=== PATIENT | female | born 1990 | race Caucasian/White ===

== ENCOUNTER 2018-07-05 22:43 | Observation (INO) | END 2018-07-06 05:17 | disposition home or self-care (01) | LOC: 4S1 22:43 → OPB 22:43 → 4S1 22:47 ==

== ENCOUNTER 2018-07-17 05:26 | Inpatient (IN) | END 2018-07-19 15:20 | disposition home or self-care (01) | LOC: OPB 05:26 → 4S1 05:27 → 4S2 14:36 ==

== ENCOUNTER 2021-01-02 20:25 | Inpatient (IN) ==
[2021-01-02] MEDS ORDERED: OXYTOCIN 30 UNITS/500 ML BAG IV PRN ×2 (20:41→23:27)
[2021-01-02] MEDS: LACTATED RINGER'S 1,000 ML IV PRN ×2 (20:50→21:50)
--- NOTE | 2021-01-02 20:53 | History & Physical Report ---
Date of Service January 02, 2021 Assessment & Plan Admission and Anticipated Discharge Date Admission Date: IUP at 39 weeks in active labor requesting epidural analgesia anticipate vaginal delivery History of Present Illness Primary Care Provider: Lanie Hernandez MD Patient is a 30 yo white female EDC 01/06/21 who presents at 39+ weeks in active labor. complicated by hypothyroidism. Blood type O positive GBS -negative Allergies Allergy/AdvReac Type Severity Reaction Status Date / Time gluten Allergy Severe Diarrhea/ Verified 01/02/21 16:06 Thyroid Swelling Home Medications Medication Instructions Recorded Confirmed Type levothyroxine 88 mcg PO QAM@0300 05/19/20 01/02/21 History cholecalciferol (vitamin D3) PO 07/20/20 01/02/21 History ferrous sulfate PO 07/20/20 01/02/21 History prenat.vits,sheila,[id number] PO 11/23/20 01/02/21 History Patient History Medical History Asthma Has not used inhaler since 2016 GERD (gastroesophageal reflux disease) During first trimester Ford's thyroiditis History of chicken pox Post traumatic stress disorder Subchorionic hematoma in first trimester Surgical History H/O wisdom tooth extraction History of colposcopy [place] teeth removed Family History Grandmother (Paternal) Breast cancer Denies family history of Ovarian cancer Colorectal cancer Social History Smoking Status: Never smoker Hx Alcohol Use: No Hx Substance Use: No Preferred Language: Grenadian Communication Ability: Effective Printing Table Hand Required: No Beliefs That Will Affect Care: None marital status: Single marital status details: chiqui Omer (30) [phone] Current Living Situation: Family and Significant Other Current Living Situation Comment: Lives with Chiqui, 2 children, ferrets current occupational status: employed current occupation: works as Feels Safe at Home: Yes Assistive Devices: None Review of Systems All systems reviewed & are unremarkable except as noted in HPI & below Physical Exam Constitutional: WD/WN, vitals as above Respiratory: normal respiratory effort, lungs clear to auscultation Cardiovascular: RRR, no murmur, no edema Gastrointestinal (Abdomen): normal bowel sounds, soft, nontender, no hepatosplenomegaly Psychiatric: A+Ox3, euthymic affect Genitourinary: OB Exam Abdomen: + regular contractions (every 2minutes) Manual OB Exam: + cervical dilation 7 cm, + cervical effacement 100% and + station high OB Exam Monitor Tracing: + external FHT monitor used, + external uterine monitor used, + category II and + normal FHT variability vertex by sono Results & Data ([facility]) Vital Signs (Past 12 Hours) Vital Signs Temp Pulse Resp BP 01/02/21 20:31 112 H 132/85 01/02/21 20:26 98.1 F 18 Coding Level of Care Code None
[2021-01-02 21:04] LABS: Hematocrit (blood only) 35.2 % (37-47); Hemoglobin 11.4 g/dL (12.0-16.0); Mean Corpuscular Hemoglobin 25.6 pg (25-34); Mean Corpuscular Hgb Conc 32.4 g/dL (32-36); Mean Corpuscular Volume 79.1 fL (80-100); Mean Platelet Volume 9.3 fL (7.4-10.4); Platelet Count 225 K/uL (130-400); RDW Coefficient of Variation 15.2 % (11.5-14.5); RDW Standard Deviation 44.4 fL (36.4-46.3); Red Blood Count 4.45 M/uL (4.2-5.4); White Blood Count 18.15 K/uL (4.8-10.8)
[2021-01-02] MEDS ORDERED: ePHEDrine sulfate 50 MG/ML AMP IV PRN (21:04)
[2021-01-02] MEDS ORDERED: NALOXONE HCL 1 MG in SODIUM CHLORIDE 0.9% 1000ML 1,000 ML IV PRN (21:04)
[2021-01-02] MEDS ORDERED: NALBUPHINE HCL INJ 10 MG/ML AMP IV PRN (21:04)
[2021-01-02] MEDS ORDERED: ONDANSETRON INJ 2 MG/ML 2 ML VIAL IV PRN ×2 (21:04→22:45)
[2021-01-02] MEDS ORDERED: NALOXONE HCL 0.4 MG/1 ML VIAL/CARP IV PRN (21:04)
[2021-01-02] MEDS ORDERED: diphenhydrAMINE 50 MG/ML VIAL IV PRN (21:04)
[2021-01-02] MEDS ORDERED: fentaNYL 2MCG/ML ROPIVACAINE 1.25MG/ML 100 ML BAG EPI PRN (21:04)
--- NOTE | 2021-01-02 21:04 | Anesthesiology Consultation ---
Date of Service January 02, 2021 Assessment & Plan ASA ASA2 Proposed Anesthesia Anesthesia Type: Labor Epidural Risk / Benefits Reviewed With: PT / POA / Parent / Guardian, Accepts Plan and Informed Consent Obtained History Allergies Allergy/AdvReac Type Severity Reaction Status Date / Time gluten Allergy Severe Diarrhea/ Verified 01/02/21 16:06 Thyroid Swelling Medications Home Medications Medication Instructions Recorded Confirmed Last Taken ferrous sulfate [Iron (ferrous 325 mg PO DAILY 01/02/21 01/02/21 01/02/21 07:00 sulfate)] levothyroxine 112 mcg PO DAILY 01/02/21 01/02/21 01/02/21 06:00 vit no.[id number] 1 tab PO DAILY 01/02/21 01/02/21 01/02/21 07:00 [ Vitamin] Active Medications Generic Name Dose Route Start Last Admin Trade Name Freq PRN Reason Stop Dose Admin Ephedrine Sulfate 10 mg 01/02/21 21:04 01/02/21 22:40 Ephedrine Sulfate 50 Mg/Ml Amp IV 01/03/21 21:03 10 mg Q5M PRN Administration Hypotension Lactated Ringer's 1,000 mls @ 125 mls/hr 01/02/21 20:41 01/02/21 21:50 Lr IV 01/04/21 20:40 125 mls/hr .Q8H PRN Administration L&D Protocol Protocol Ropivacaine 100 ml 01/02/21 21:04 01/02/21 21:47 Fentanyl 2mcg/Ml Ropivacaine 1.25mg/Ml 100 Ml Bag EPI 01/03/21 21:03 100 ml PRN PRN Administration Pain R/T Labor Protocol Past Medical History Medical History Asthma Has not used inhaler since 2017 GERD (gastroesophageal reflux disease) During first trimester Ford's thyroiditis History of chicken pox Post traumatic stress disorder Subchorionic hematoma in first trimester Exercise / Class Metabolic Activity II 4-5 Yardwork/Stairs/Walk up hill Past Family History Family History Grandmother (Paternal) Breast cancer Denies family history of Ovarian cancer Colorectal cancer Past Surgical History Surgical History H/O wisdom tooth extraction History of colposcopy [place] teeth removed Past Anesthesia History No Hx of Anesthesia Complications and No Family Hx of Anesthesia Complications History of PONV No Hx of PONV and No Hx of Motion Sickness Social History Smoking Status: Never smoker Hx Alcohol Use: No Hx Substance Use: No substance use type: does not use Review of Systems denies fever/cough/ colds/ chest pain/ SOB/ KORTNEY denies KORTNEY Physical Exam Vital Signs Last Vital Signs Temp 36.3 C L 01/02/21 22:35 Pulse 113 H 01/02/21 22:49 Resp 18 01/02/21 22:30 BP 120/80 01/02/21 22:39 Pulse Ox 100 01/02/21 22:49 ENMT Mouth: no TMJ abnormality and no dentition abnormality Thyromental Distance: > or= 3.5 Finger Breadths Mallampati Class: II Neck neck extension not limited Respiratory normal respiratory effort; no respiratory distress Auscultation: lungs clear to auscultation bilaterally Cardiovascular Rate/Rhythm: regular rate and regular rhythm Neurologic moves all extremities Psychiatric Orientation: alert and oriented x 3 Testing Laboratory Results 01/02/21 20:54
[2021-01-02] MEDS ORDERED: SODIUM CHLORIDE 0.9% INJ 10 ML VIAL ONE (21:19)
[2021-01-02] MEDS ORDERED: BUPIVACAINE 0.25% 30 ML VIAL ONE (21:19)
[2021-01-02] MEDS ORDERED: ePHEDrine sulfate 50 MG/ML AMP ONE (21:19)
[2021-01-02] MEDS ORDERED: fentaNYL citrate 100 MCG/2 ML VIAL ONE (21:19)
[2021-01-02] MEDS ORDERED: fentaNYL 2MCG/ML ROPIVACAINE 1.25MG/ML 100 ML BAG EPI ONE (21:20)
[2021-01-02] MEDS ORDERED: HYDROCORTISONE ACETATE 25 MG SUPP PR PRN (23:27)
[2021-01-02] MEDS ORDERED: DIPHTHERIA/TETANUS/PERTUSSIS 0.5 ML SYR/VIAL IM ONE (23:27)
[2021-01-02] MEDS ORDERED: BENZOCAINE 20% AER SPR 82.5 GM CAN EXT PRN (23:27)
[2021-01-02] MEDS ORDERED: oxyCODONE/ACETAMINOPHEN 5mg/325mg TAB PO PRN (23:27)
[2021-01-02] MEDS ORDERED: SUPERCREAM 0.870% 15 GM JAR EXT PRN (23:27)
--- NOTE | 2021-01-02 23:32 | Delivery Summary ---
Vaginal Delivery Summary Date of Service January 02, 2021 Patient is a 30-year-old 4 para 2-0-1-2 white female who presents at 39- 3/7 weeks in active labor. She received effective epidural analgesia. Her membranes were ruptured for clear fluid. She then progressed to full dilation and began pushing phase. She pushed well through 2 contractions for delivery of a viable female . After the head was delivered the rest of the delivered easily and was placed on the mother's abdomen for further attention and drying. The infant was vigorous and moving all 4 limbs. The placenta was expressed intact with a three-vessel cord. bleeding was controlled with dilute Pitocin. Perineum was inspected and noted to be intact. Estimated blood loss was 200 cc. Mother and infant were doing well after delivery. Vaginal Delivery Summary [facility] Vaginal Delivery Charge Delivery Type Details: [facility]
[2021-01-03] MEDS: IBUPROFEN 600 MG TAB PO PRN ×4 (01:11→22:26)
--- NOTE | 2021-01-03 03:49 | Anesthesiology Progress Note ---
Date of Service January 03, 2021 Anesthesia Post Procedure Vital Signs Vital Signs: Temp Pulse Pulse Resp BP BP Pulse Ox 01/03/21 02:40 36.7 C 82 18 117/76 97 01/03/21 01:40 83 106/63 01/03/21 01:30 18 01/03/21 01:00 18 01/03/21 00:55 98 H 111/65 01/03/21 00:40 100 H 111/54 L 01/03/21 00:30 18 01/03/21 00:25 85 115/57 L 01/03/21 00:15 18 01/03/21 00:00 18 01/02/21 23:55 88 117/59 L 01/02/21 23:40 100 H 99/51 L 01/02/21 23:30 18 01/02/21 23:25 98 H 102/56 L 01/02/21 23:14 112 H 100 01/02/21 23:10 99 H 119/70 01/02/21 23:09 108 H 100 01/02/21 23:07 18 01/02/21 23:04 131 H 97 01/02/21 23:00 125 H 18 92 01/02/21 22:59 117 H 100 01/02/21 22:56 121 H 119/70 01/02/21 22:54 116 H 100 01/02/21 22:49 113 H 100 01/02/21 22:44 115 H 100 01/02/21 22:39 101 H 120/80 100 01/02/21 22:36 116 H 94/52 L 01/02/21 22:35 36.3 C L 01/02/21 22:34 102 H 100 01/02/21 22:30 18 01/02/21 22:29 83 100 01/02/21 22:26 75 106/60 01/02/21 22:24 107 H 100 01/02/21 22:19 93 H 100 01/02/21 22:14 104 H 100 01/02/21 22:10 100 H 115/74 01/02/21 22:09 100 H 100 01/02/21 22:07 91 H 109/71 01/02/21 22:04 86 110/69 100 01/02/21 22:01 96 H 110/68 01/02/21 21:59 94 H 100 01/02/21 21:58 94 H 126/74 01/02/21 21:55 93 H 117/70 01/02/21 21:54 97 H 100 01/02/21 21:52 98 H 114/70 01/02/21 21:50 18 01/02/21 21:49 82 119/56 L 100 01/02/21 21:48 18 01/02/21 21:46 91 H 18 152/75 H 01/02/21 21:44 96 H 18 100 01/02/21 21:43 98 H 132/92 01/02/21 21:38 18 01/02/21 20:31 112 H 132/85 01/02/21 20:26 36.7 C 18 Pain Intensity Abdomen: Pain Intensity: 1 Transfer of Care Handoff Completed per policy Notes Mental Status: alert / awake / arousable and participated in evaluation Patient Amnestic to Procedure: Yes Nausea / Vomiting: adequately controlled Pain: adequately controlled Airway Patency, RR, SpO2: stable & adequate BP & HR: stable & adequate Hydration State: stable & adequate Anesthetic Complications: no major complications apparent and Pt Satisfied with anesthetic care
[2021-01-03] MEDS: LEVOTHYROXINE SODIUM 112 MCG TABLET PO SCH (05:43)
[2021-01-03 06:52] LABS: Hematocrit (blood only) 32.7 % (37-47); Hemoglobin 10.5 g/dL (12.0-16.0); Mean Corpuscular Hemoglobin 25.3 pg (25-34); Mean Corpuscular Hgb Conc 32.1 g/dL (32-36); Mean Corpuscular Volume 78.8 fL (80-100); Mean Platelet Volume 9.5 fL (7.4-10.4); Platelet Count 219 K/uL (130-400); RDW Coefficient of Variation 15.3 % (11.5-14.5); RDW Standard Deviation 44.8 fL (36.4-46.3); Red Blood Count 4.15 M/uL (4.2-5.4); White Blood Count 19.61 K/uL (4.8-10.8)
[2021-01-03] MEDS: DOCUSATE SODIUM 100 MG CAP PO SCH ×2 (08:24→20:39)
[2021-01-03] MEDS: PRENATAL VITAMIN 1 TAB PO SCH (08:24)
--- NOTE | 2021-01-03 08:40 | Obstetrical Progress Note ---
Date of Service January 03, 2021 Assessment & Plan (1) Encounter for care and examination after delivery: satisfactory post progress continue current care plan Subjective Ambulation: ambulating normally Voiding: no voiding problems Passing Gas:: Yes Diet Tolerance:: regular diet Lochia:: Small Feeding Type:: breast feeding Physical Exam Constitutional WD/WN, vitals as above Psychiatric A+Ox3, euthymic affect Genitourinary OB Exam Abdomen: + fundal height Fundus: + firm and + relation to umbilicus (at U) no calf tenderness Results & Data ([facility]) Vital Signs (Past 12 Hours) Vital Signs Temp Pulse Pulse Resp BP BP Pulse Ox 01/03/21 07:50 98.6 F 67 18 111/75 98 01/03/21 02:40 98.1 F 82 18 117/76 97 01/03/21 01:40 83 106/63 01/03/21 01:30 18 01/03/21 01:00 18 01/03/21 00:55 98 H 111/65 01/03/21 00:40 100 H 111/54 L 01/03/21 00:30 18 01/03/21 00:25 85 115/57 L 01/03/21 00:15 18 01/03/21 00:00 18 01/02/21 23:55 88 117/59 L 01/02/21 23:40 100 H 99/51 L 01/02/21 23:30 18 01/02/21 23:25 98 H 102/56 L 01/02/21 23:14 112 H 100 01/02/21 23:10 99 H 119/70 01/02/21 23:09 108 H 100 01/02/21 23:07 18 01/02/21 23:04 131 H 97 01/02/21 23:00 125 H 18 92 01/02/21 22:59 117 H 100 01/02/21 22:56 121 H 119/70 01/02/21 22:54 116 H 100 01/02/21 22:49 113 H 100 01/02/21 22:44 115 H 100 01/02/21 22:39 101 H 120/80 100 01/02/21 22:36 116 H 94/52 L 01/02/21 22:35 97.3 F L 01/02/21 22:34 102 H 100 01/02/21 22:30 18 01/02/21 22:29 83 100 01/02/21 22:26 75 106/60 01/02/21 22:24 107 H 100 01/02/21 22:19 93 H 100 01/02/21 22:14 104 H 100 01/02/21 22:10 100 H 115/74 01/02/21 22:09 100 H 100 01/02/21 22:07 91 H 109/71 01/02/21 22:04 86 110/69 100 01/02/21 22:01 96 H 110/68 01/02/21 21:59 94 H 100 01/02/21 21:58 94 H 126/74 01/02/21 21:55 93 H 117/70 01/02/21 21:54 97 H 100 01/02/21 21:52 98 H 114/70 01/02/21 21:50 18 01/02/21 21:49 82 119/56 L 100 01/02/21 21:48 18 01/02/21 21:46 91 H 18 152/75 H 01/02/21 21:44 96 H 18 100 01/02/21 21:43 98 H 132/92 01/02/21 21:38 18
[2021-01-03] MEDS ORDERED: bisacodyL 5 MG TABEC PO SCH (20:00)
[2021-01-03] MEDS: ACETAMINOPHEN 325 MG TAB PO PRN (23:40)
[2021-01-04] MEDS: IBUPROFEN 600 MG TAB PO PRN (05:39)
[2021-01-04] MEDS: LEVOTHYROXINE SODIUM 112 MCG TABLET PO SCH (05:39)
[2021-01-04] MEDS ORDERED: bisacodyL 10 MG SUPP PR PRN (06:00)
[2021-01-04 07:05] LABS: Hematocrit (blood only) 36.1 % (37-47); Hemoglobin 11.4 g/dL (12.0-16.0)
--- NOTE | 2021-01-04 07:48 | Obstetrical Progress Note ---
Date of Service January 04, 2021 Assessment & Plan (1) Encounter for care and examination after delivery: day 2 s/p . Doing well. Stable for discharge. Subjective Ambulation: ambulating normally Voiding: no voiding problems Passing Gas:: Yes Diet Tolerance:: regular diet Lochia:: Moderate Physical Exam Constitutional WD/WN, vitals as above Respiratory normal respiratory effort; no respiratory distress and no labored breathing Gastrointestinal (Abdomen) Inspection/Auscultation: abdomen normal to inspection; abdomen not distended Percussion/Palpation: abdomen soft; abdomen nontender, no guarding and abdomen not rigid Genitourinary OB Exam Abdomen: + fundal height Fundus: + firm and + relation to umbilicus (Below); not tender and not boggy Results & Data ([facility]) Vital Signs (Past 12 Hours) Vital Signs Temp Pulse Resp BP Pulse Ox 01/03/21 23:35 37.0 C 84 16 115/77 97 01/03/21 19:50 36.9 C 76 20 107/67
[2021-01-04] MEDS: PRENATAL VITAMIN 1 TAB PO SCH (07:51)
[2021-01-04] MEDS: ACETAMINOPHEN 325 MG TAB PO PRN (07:51)
[2021-01-04] MEDS: DOCUSATE SODIUM 100 MG CAP PO SCH (07:51)
== END 2021-01-04 11:20 | disposition home or self-care (01) | DRG 807 ==
LOC: OPB 20:25 → 4S1 20:26 → 4S2 01-03 01:46